=== PATIENT | female | born 1985 | race Asian ===

== ENCOUNTER → 2025-03-08 16:16 | Outpatient (REF) | payer BC, SELFPAY | LOC: RCS 16:16 | PROVIDERS: ATTENDING PHYSICIAN Internal Medicine Cardiovascular Disease; FAMILY PHYSICIAN Obstetrics & Gynecology | DX: R00.0 Tachycardia, unspecified (principal) | CPT/HCPCS: 93306 ==

== ENCOUNTER → 2025-03-14 09:26 | Outpatient (REF) | payer BC, SELFPAY | LOC: PNTC 09:26 | PROVIDERS: ATTENDING PHYSICIAN Obstetrics & Gynecology | DX: O09.523 Supervision of elderly multigravida, third trimester (principal); O99.283 Endocrine, nutritional and metabolic diseases complicating pregnancy, third trimester | CPT/HCPCS: 76816 ==

== ENCOUNTER → 2025-03-31 15:13 | Outpatient (REF) | payer BC, SELFPAY | LOC: WDC 15:13 | PROVIDERS: ATTENDING PHYSICIAN Obstetrics & Gynecology | DX: R22.31 Localized swelling, mass and lump, right upper limb (principal) | CPT/HCPCS: 76642 ==

== ENCOUNTER 2025-04-11 09:44 | Inpatient (IN) | payer BC, SELFPAY ==
[2025-04-11 09:52] VITALS: BP 107/76; BMI 28.0
[2025-04-11] MEDS: LR 1000 IV ×2 (10:00→13:54)
[2025-04-11 10:39] LABS: Hematocrit 34.6 % (37.0-47.0); Hemoglobin 11.7 g/dL (12.0-16.0); Mean Corp Hgb Conc. 33.8 g/dL (33.0-37.0); Mean Corpuscular Volume 93.0 fL (81.0-99.0); Nucleated Red Blood Cells % 0 %; Platelet Count 250 10^3/uL (130-400); Red Cell Dist. Width 13.4 % (11.5-14.5)
[2025-04-11] MEDS: PITOCIN 30 UNITS/NSS 500 ML IV (11:24)
[2025-04-11] MEDS: PENICILLIN 110 UNITS IV (11:39)
[2025-04-11] MEDS: SUBLIMAZE 100 MCG EPIDURAL (14:21)
[2025-04-11] MEDS: FENTANYL/BUPIVACAINE 100 EPIDURAL (14:21)
[2025-04-11] MEDS: PENICILLIN 55 UNITS IV (16:23)
[2025-04-11] MEDS: TRANEXAMIC ACID 100 IV (20:19)
[2025-04-11] MEDS: CYTOTEC 800 MCG RECTAL (20:30)
[2025-04-11] MEDS: METHERGINE INJECTION 0.2 MG IM (20:34)
[2025-04-11] MEDS: COLACE PO (20:39)
[2025-04-12 04:39] LABS: Hematocrit 31.9 % (37.0-47.0); Hemoglobin 11.1 g/dL (12.0-16.0)
[2025-04-12] MEDS: SYNTHROID 100 MCG PO (06:04)
[2025-04-12] MEDS: COLACE 100 MG PO ×2 (08:50→19:31)
[2025-04-12] MEDS: PRENATAL PLUS 1 TABLET PO (08:50)
[2025-04-12] MEDS: MOTRIN 600 MG PO ×2 (08:50→22:10)
[2025-04-13] MEDS: SYNTHROID 100 MCG PO (06:19)
[2025-04-13] MEDS: PRENATAL PLUS 1 TABLET PO (08:11)
[2025-04-13] MEDS: COLACE 100 MG PO (08:12)
[2025-04-13 11:23] LABS: Syphilis/T. pallidum Ab Reflex Negative (Negative)
== END 2025-04-13 11:47 | disposition home or self-care (01) | DRG 807 ==
LOC: LDRP 09:44
PROVIDERS: ADMITTING PHYSICIAN Obstetrics & Gynecology
PROC: 10907ZC Drainage of Amniotic Fluid, Therapeutic from Products of Conception, Via Natural or Artificial Opening (ICD-10-PCS; 2025-04-11)
PROC: 3E033VJ Introduction of Other Hormone into Peripheral Vein, Percutaneous Approach (ICD-10-PCS; 2025-04-11)
PROC: 10E0XZZ Delivery of Products of Conception, External Approach (ICD-10-PCS; 2025-04-11)
PROC: 0KQM0ZZ Repair Perineum Muscle, Open Approach (ICD-10-PCS; 2025-04-11)
DX: O99.824 Streptococcus B carrier state complicating childbirth (principal); Z37.0 Single live birth; Z3A.39 39 weeks gestation of pregnancy; O70.1 Second degree perineal laceration during delivery; O99.284 Endocrine, nutritional and metabolic diseases complicating childbirth; E03.9 Hypothyroidism, unspecified
CPT/HCPCS: 36415; 59025; 85014; 85018; 85025; 86780; 86850; 86900; 86901; 88307